=== PATIENT | male | born 1985 | race Two or more races ===

== ENCOUNTER 2024-09-18 10:29 | Emergency (ER) | payer MEDICAID ==
[~2024-09-18] VITALS: Ht 175.3 cm; Wt 74.1 kg
[2024-09-18 10:37] VITALS: TEMP 98.2
[2024-09-18 11:50] LABS: COVID AG,FIA SOURCE NASAL SWAB
[2024-09-18 12:14] LABS: SARS-COV2 (COVID) ANTIGEN,FIA Negative (Negative)
[2024-09-18 13:38] LABS: PH,URINE DRUG SCREEN 7.5 (5.0-8.0)
[2024-09-18 14:03] LABS: AMPHET/METH SCREEN,URINE POSITIVE (NEGATIVE); BARBITURATE SCREEN, URINE NEGATIVE (NEGATIVE); BENZODIAZEPINES SCREEN,URINE NEGATIVE (NEGATIVE); CANNABINOID SCREEN,URINE POSITIVE (NEGATIVE); COCAINE SCREEN,URINE NEGATIVE (NEGATIVE); METHADONE SCREEN, URINE NEGATIVE (NEGATIVE); OPIATE SCREEN,URINE NEGATIVE (NEGATIVE); PHENCYCLIDINE SCREEN,URINE NEGATIVE (NEGATIVE)
[2024-09-18 14:04] LABS: ALCOHOL, URINE DRUG SCREEN NEGATIVE (NEGATIVE)
[2024-09-18] MEDS ORDERED: LORazepam 2 MG/ML VIAL ONE (15:40)
[2024-09-18] MEDS ORDERED: DiphenhydrAMINE HCL 50 MG/ML VIAL ONE (15:41)
[2024-09-18] MEDS ORDERED: HALOPERIDOL LACTATE 5 MG/ML VIAL ONE (15:41)
[2024-09-18] MEDS: DiphenhydrAMINE HCL 50 MG/ML VIAL IM ONE (15:53)
[2024-09-18] MEDS: HALOPERIDOL LACTATE 5 MG/ML VIAL IM ONE (15:53)
[2024-09-18] MEDS: LORazepam 2 MG/ML VIAL IM ONE (15:53)
[2024-09-19 04:00] VITALS: BP 116/75; PULSE 71; RESP 16; O2SAT 97
== END 2024-09-19 04:36 | disposition admitted as inpatient to this hospital (09) ==
LOC: EMS 10:29 → EDSEX 10:29 → EMS 09-19 04:36
DX: F20.9 Schizophrenia, unspecified (principal); M25.561 Pain in right knee; M25.571 Pain in right ankle and joints of right foot; F17.210 Nicotine dependence, cigarettes, uncomplicated; F14.90 Cocaine use, unspecified, uncomplicated; F15.90 Other stimulant use, unspecified, uncomplicated; F10.90 Alcohol use, unspecified, uncomplicated; Z20.822 Contact with and (suspected) exposure to COVID-19
CPT/HCPCS: 99285; 87426; 73562; 73610; 96372; 80307; J1200; J1630; J2060